=== PATIENT | male | born 1995 | race Caucasian/White ===

== ENCOUNTER 2017-03-06 18:04 | Emergency (ER) | payer OTHER ==
--- NOTE | 2017-03-06 19:23 | EDPHY ---
H & P Time Seen by Provider: 03/06/17 18:24 HPI/ROS: HPI Left shoulder injury. 21-year-old male by private vehicle. This patient was skateboarding down a slope in [place]. He fell on an outstretched left hand hit a rock with his left clavicle. He has a history of a prior left clavicle fracture. He complains of isolated left clavicle pain. No loss of sensation or weakness in his left upper extremity. He did not hit his head. No loss of consciousness. No neck pain. No other extremity pain. No other complaint. ROS: Constitutional: No fever, no chills. No weakness. Musculoskeletal: No back pain. No neck pain. As above. Skin: No rashes. No lacerations or abrasions. Neurological: No headache. No focal weakness or altered sensation. Past medical history: Prior left clavicle fracture. Social history: He is a student [employer]. He is from [place]. Nonsmoker. No alcohol. Physical Exam: General Appearance: Alert, no distress. This patient is responding to questions appropriately and in full sentences. This patient appears well- hydrated and well-nourished. Eyes: Pupils equal and round no pallor or injection. No lid edema, erythema or injection. Left shoulder and upper extremity exam: Significant for a mild swelling over the left clavicle area. The left axillary nerve distribution is intact. The left upper extremity is neurovascularly intact. The glenohumeral joint is non tender and appears anatomically correct on gross inspection. Neurological: Motor sensory function is grossly intact. Cranial nerves are normal. Gait is normal. Skin: Warm and dry, no rashes. No lacerations or abrasions. Musculoskeletal: Neck is supple and nontender. Extremities are symmetrical. All joints range without pain or impingement except noted. Psychiatric: No agitation. No depression. Database: EKG: Imaging: Left shoulder and clavicle series x-ray: No evidence of pneumothorax. There is a nondisplaced fracture of the left mid clavicle. Interpreted by me. Procedures: Emergency department course: Vital signs reviewed and are normal. Sling placed for the left upper extremity. Spoke with PA for mechanical integrity specialist Dr. Hassan. Dr. Hassan or 1 of his partners will see this patient on follow-up in his office early next week. Patient is comfortable with this plan. He feels comfortable going home. He understands his follow-up. Return to emergency department precautions reviewed with him. All of his questions were answered. He was discharged in good condition. Differential Diagnosis: The differential diagnosis on this patient includes but is not limited to left clavicle fracture. Glenohumeral joint dislocation, proximal humerus fracture, pneumothorax unlikely. This represents a partial list of diagnoses considered. These considerations are based on history, physical exam, past history, reassessment and diagnostic testing. Smoking Status: Current some day smoker Constitutional: Initial Vital Signs Temperature (C) 37 C 03/06/17 18:09 Heart Rate 81 03/06/17 18:09 Respiratory Rate 16 03/06/17 18:09 Blood Pressure 123/82 H 03/06/17 18:09 O2 Sat (%) 96 03/06/17 18:09 O2 Delivery Mode Room Air Allergies/Adverse Reactions: No Known Allergies Allergy (Unverified 03/06/17 18:08) Home Medications: Medication Instructions Recorded Amphet Asp and D/Amphet [Adderall 10 mg PO 03/06/17 10 MG (*)] Medical Decision Making - Diagnostics Imaging Results: Imaging Impressions Shoulder X-Ray 03/06/17 18:27 Impression: Acute nondisplaced mid left clavicular fracture. Departure - Departure Disposition: Home, Routine, Self-Care Clinical Impression: Closed left clavicular fracture Condition: Good Instructions: Clavicle Fracture (ED) Additional Instructions: Read and follow provided instructions. Follow-up with mechanical integrity specialist, Dr. Hassan or 1 of his partners early this week. They have your name information. Call their office on Wednesday morning for appointment time. Ibuprofen dosin mg every 6 hours with meals for the next 3 days only. Return to the emergency department for worsening pain, swelling, difficulty breathing, loss of sensation or weakness in your arm or other serious concerns. Referrals: Jaswinder Hassan MD [Medical Doctor] - As per Instructions
[2017-03-06 19:45] VITALS: BP 130/75; PULSE 67; RESP 18; TEMP 97.9; O2SAT 97
== END 2017-03-06 19:46 | disposition home or self-care (01) ==
DX: S42.002A Fracture of unspecified part of left clavicle, initial encounter for closed fracture (principal); F17.200 Nicotine dependence, unspecified, uncomplicated; V00.131A Fall from skateboard, initial encounter; Y99.8 Other external cause status; Y93.51 Activity, roller skating (inline) and skateboarding
CPT/HCPCS: A4565

== ENCOUNTER 2018-06-24 21:57 | Emergency (ER) | payer OTHER ==
[2018-06-24] MEDS ORDERED: IPRATROPIUM/ALBUTEROL 3 ML DEYVIAL IH ONE (22:50)
[2018-06-24] MEDS ORDERED: ALBUTEROL INH PREPACK MDI TAKEHOME ONE (23:23)
--- NOTE | 2018-06-24 23:25 | EDPHY ---
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 The patient began to feel badly at about 5:00 p.m. With some mild cough which progressed throughout the evening and became severe. He went outside, however had ongoing symptoms and felt as if he was having an asthma attack so comes into the emergency department. Prior to my assessment he has received a DuoNeb and feels much better.. REVIEW OF SYSTEMS 10 systems were reviewed and negative with the exception of the elements mentioned in the history of present illness. PMHx: Childhood asthma, uses albuterol rarely Soc Hx: Works at a restaurant, nonsmoker PHYSICAL General Appearance: Alert, no distress Eyes: Pupils equal and round no pallor or injection ENT, Mouth: Mucous membranes moist Respiratory: There are no retractions, lungs are clear to auscultation with mild expiratory wheeze heard in left lower lung field Cardiovascular: Regular rate and rhythm Neurological: A&O, moves all extremities Skin: Warm and dry, no rashes Extremities: symmetrical, full range of motion Psychiatric: Patient is oriented X 3, there is no agitation Source: Patient Exam Limitations: No limitations - Personal History Current Tetanus/Diphtheria Vaccine: Yes Current Tetanus Diphtheria and Acellular Pertussis (TDAP): Yes - Medical/Surgical History Hx Asthma: Yes Hx Chronic Respiratory Disease: No Hx Diabetes: No Hx Cardiac Disease: No Hx Renal Disease: No Hx Cirrhosis: No Hx Alcoholism: No Hx HIV/AIDS: No Hx Splenectomy or Spleen Trauma: No Other PMH: adhd - Social History Smoking Status: Never smoked Constitutional: Initial Vital Signs Temperature (C) 36.7 C 06/24/18 22:09 Heart Rate 73 06/24/18 22:09 Respiratory Rate 18 06/24/18 22:09 Blood Pressure 138/93 H 06/24/18 22:09 O2 Sat (%) 96 06/24/18 22:09 O2 Delivery Mode Room Air Allergies/Adverse Reactions: No Known Allergies Allergy (Unverified 06/24/18 22:12) Home Medications: Medication Instructions Recorded Amphet Asp and D/Amphet [Adderall 10 mg PO 03/06/17 10 MG (*)] Albuterol [Ventolin Hfa Inhaler] 06/24/18 Medical Decision Making Differential Diagnosis: 22-year-old male with history of childhood asthma who presents with chlorine gas exposure suspected which occurred while working at a restaurant. He had cough, shortness of breath which were progressive throughout the night. Here he is improved with a DuoNeb. His pulse oximetry is normal. He is in no respiratory distress though does have mild expiratory wheeze in left lower lung field. He does not want to pursue chest x-ray as he is feeling much better. I feel comfortable discharging him with supportive measures. - Data Points Medications Given: Discontinued Medications Albuterol/Ipratropium (Duoneb) 3 ml IH EDNOW ONE Stop: 06/24/18 22:51 Last Admin: 06/24/18 22:53 Dose: 3 ml Departure - Departure Disposition: Home, Routine, Self-Care Clinical Impression: Chlorine gas exposure Condition: Good Instructions: Asthma (ED) Additional Instructions: Please make sure to drink plenty of fluids. You should use the albuterol as needed. You can try a steam shower to see if this helps her symptoms. If your worse in any way, you should return to the emergency department. Otherwise, you can follow up with the workman's comp doctor. Referrals: Alannah Flores MD [[facility] Primary Care Provider] - As per Instructions
[2018-06-24 23:40] VITALS: BP 138/88
== END 2018-06-24 23:39 | disposition home or self-care (01) ==
DX: T59.4X4A Toxic effect of chlorine gas, undetermined, initial encounter (principal); Y99.0 Civilian activity done for income or pay; Y92.511 Restaurant or cafe as the place of occurrence of the external cause; Y93.9 Activity, unspecified